=== PATIENT | female | born 1935 | race Caucasian/White ===

== ENCOUNTER 2019-06-02 11:54 | Inpatient (IN) ==
--- NOTE | 2019-06-02 12:49 | EKG Report ---
Test Performed on : 06/02/2019 12:48:06 PM Test Reason : syncope Blood Pressure : / mmHG Vent. Rate : 108 BPM Atrial Rate : 108 BPM P-R Int : 142 ms QRS Dur : 060 ms QT Int : 308 ms P-R-T Axes : 083 022 044 degrees QTc Int : 412 ms Sinus tachycardia. Possible Left atrial enlargement Low voltage QRS Borderline ECG When compared with ECG of 26-JUL-2008 10:26, QRS duration has decreased Unconfirmed Result
[2019-06-02 13:02] LABS: URINE SOURCE CLEAN CATCH
[2019-06-02 13:07] LABS: BILIRUBIN URINE NEGATIVE (NEGATIVE); BLOOD URINE MODERATE (NEGATIVE); COLOR YELLOW; GLUCOSE URINE NEGATIVE (NEGATIVE); KETONE URINE NEGATIVE (NEGATIVE); LEUKOCYTES URINE LARGE (NEGATIVE); NITRITE URINE POSITIVE (NEGATIVE); PROTEIN URINE 70 mg/dL (NEGATIVE); SP GRAVITY URINE 1.011; TURBIDITY URINE HAZY (CLEAR); UROBILINOGEN URINE NORMAL (NORMAL)
[2019-06-02 13:09] LABS: BASO# 0.03 X1000 (0.0-0.2); BASO% 0.1 % (0.0-0.8); HEMATOCRIT 35.8 % (37.0-47.0); HEMOGLOBIN 12.2 g/dL (12.0-16.0); IMM GRAN# 0.07 X1000 (0.0-0.04); IMM GRAN% 0.3 % (0.0-0.5); LYMPH# 1.28 X1000 (1.2-3.4); LYMPH% 6.2 % (20.5-51.1); MCH 28.3 PG (27-31); MCHC 34.1 g/dL (33-37); MCV 83.1 FL (81-99); MONO# 2.06 X1000 (0.11-0.59); MONO% 9.9 % (1.7-9.3); MPV 9.7 FL (7.4-10.4); NEUT# 17.36 X1000 (1.4-6.5); NEUT% 83.5 % (42.2-75.2); PLT 253 X1000 (130-400); RBC 4.31 XMIL (4.2-5.4); RDW 13.8 % (11.5-14.5)
[2019-06-02 13:12] LABS: UR EPITHELIAL CELLS <10 /HPF (<10); URINE BACTERIA 4+ /HPF; URINE RBC <10 /HPF (<10); URINE WBC TNTC /HPF (<10)
[2019-06-02 13:16] LABS: URINE YEAST NONE SEEN
[2019-06-02 13:24] LABS: ALB/GLOB RATIO 1.2; ALBUMIN 3.7 g/dL (3.5-5.0); CALCIUM 9.4 mg/dL (8.8-10.2); CREATININE 1.4 mg/dL (0.5-0.9); POTASSIUM 3.7 mmol/L (3.5-5.1); TOTAL BILIRUBIN 0.88 mg/dL (0.20-1.00); TOTAL PROTEIN 6.7 g/dL (6.3-8.3)
[2019-06-02] MEDS ORDERED: NS 1,200 ML IV ONE (13:24)
[2019-06-02 13:33] LABS: INR 1.42; PROTIME 17.6 Seconds (11.0-16.0)
[2019-06-02 13:34] LABS: PTT 40.2 Seconds (22.3-41.8)
--- NOTE | 2019-06-02 13:57 | Diag Imaging Result Doc PS360 ---
EXAM: CT HEAD W/O CONTRAST HISTORY: head injury TECHNIQUE: Images were obtained from the skull base to vertex without IV contrast as per standard protocol. This exam was performed using automated exposure control, adjustment of mA or kV according to patient size, and/or use of iterative reconstruction technique. COMPARISON: None. Extra-axial spaces: Normal. Intracranial hemorrhage: None appreciated. Ventricular system: Mildly prominent likely normal for age. Cerebral parenchyma: Mild atrophy and microvascular disease. Midline shift: None. Cerebellum: Unremarkable. Brainstem: Unremarkable. Calvarium: Normal. Paranasal sinuses and mastoid air cells: Clear. Visualized orbits: Normal. IMPRESSION: No acute intracranial abnormality is appreciated. Mild atrophy and microvascular disease. Electronically signed by Ashlee Kim 06/02/2019 1:54 PM
[2019-06-02 14:03] LABS: CK INDEX 1.9 (0.0-2.5); CK-MB 4.72 ng/mL (0.0-5.0)
--- NOTE | 2019-06-02 14:18 | Diag Imaging Result Doc PS360 ---
CHEST-1 VIEW - 06/02/2019 INDICATION: syncope COMPARISON: 07/13/2017 FINDINGS: Stable advanced bilateral pulmonary fibrosis. No new infiltrates. Heart size is normal. No pneumothorax or pleural effusion. IMPRESSION: Pulmonary fibrosis. No change from prior. Electronically signed by Roberto Riggins 06/02/2019 2:16 PM
[2019-06-02] MEDS ORDERED: ZITHROMAX 500 MG/NS 500 MG/250 ML IVPB IV ONE ×2 (14:38→19:00)
[2019-06-02] MEDS ORDERED: ROCEPHIN 2 GM in NS 50 ML IV ONE (14:38)
--- NOTE | 2019-06-02 15:28 | PROVIDER DOCUMENTATION ---
This chart was entered by Keya Jovel Scribe, acting as scribe for Cecilia Aguilera MD. HPI-Head Injury - General Chief Complaint: Syncope Stated Complaint: FALL, SYNCOPE Time Seen by Provider: 06/02/19 13:23 Source: patient Allergies/Adverse Reactions: Patient Allergies Allergy/AdvReac Type Severity Reaction Status Date / Time codeine Allergy Unknown Verified 06/02/19 14:06 Home Medications: Home Medication List Medication Instructions Recorded Confirmed Last Taken Type Digoxin 125 mcg PO DAILY 06/02/19 06/02/19 06/02/19 History Fluticasone Furoate [Arnuity 1 puff INH DAILY 06/02/19 06/02/19 06/02/19 History Ellipta] Montelukast Sodium [Singulair] 10 mg PO QHS 06/02/19 06/02/19 06/02/19 History Theophylline Anhydrous 300 mg PO DAILY 06/02/19 06/02/19 06/02/19 History [Theophylline] - History of Present Illness-Head Injury Nature of Presenting Problem: Patient is a 84 year old female who presents with a head injury. States having a syncopal episode while getting off the toilet and fell hitting head. Reports having a headache currently. Denies fever and cough. Head Injury Location: reports: other (left orbit) Other injuries associated with incident:: reports: none Quality of Pain: reports: aching Severity: reports: mild Onset/Duration: reports: just prior to arrival Timing: reports: still present Method of Injury: reports: fell, other (syncope) Any recent trauma/injury?: reports: minor, to head Injury Associated Symptoms: reports: denies symptoms Locality of Occurance: Home Similar Symptoms Previously?: No Recently seen or treated by another doctor?: No Review of Systems - Adult - REVIEW OF SYSTEMS - ADULT Constitutional: reports: no symptoms reported. denies: chills, fever, fatique Eyes: reports: no symptoms reported Ears, Nose, Mouth & Throat: reports: no symptoms reported Cardiovascular: reports: no symptoms reported Respiratory: reports: no symptoms reported Gastrointestinal: reports: no symptoms reported Genitourinary: reports: no symptoms reported Musculoskeletal: reports: no symptoms reported Integumentary: reports: no symptoms reported Neurological: reports: see HPI, headache/migraines, syncope, other (head injury) . denies: dizziness/vertigo Psychiatric: reports: no symptoms reported Endocrine: reports: no symptoms reported Hematologic/Lymphatic: reports: no symptoms reported Allergic/Immunologic: reports: no symptoms reported All Other Systems: Reviewed and Negative Past History - Adult - PAST MEDICAL HISTORY-ADULT Review of Records: reports: Old Records Reviewed, Nursing Assessment Review, Medications Reviewed, Social history reviewed & non-contributory. Major Childhood Illnesses: reports: denies history Cardiovascular: reports: denies history Respiratory: reports: COPD Gastrointestinal: reports: denies history Obstetrical/Gynecological: reports: denies history Genitourinary: reports: denies history Musculoskeletal: reports: denies history Neurological: reports: denies history Psychiatric: reports: denies history Endocrine/Immune: reports: denies history Other Conditions: reports: denies history - PRIOR SURGERIES/PROCEDURES Surgical/Procedure History: reports: reviewed, not pertinent, cholecystectomy, hysterectomy - IMMUNIZATION STATUS Childhood Immunizations: See Nurse Assessment Flu Vaccine: See Nurse Assessment - FAMILY HISTORY Family History: reviewed, not pertinent - SOCIAL HISTORY Smoking: cigarettes (former) Substance Use: denies Living Situation: family Physical Exam- Neurological - Physical Exam-Neuro Initial Vital Signs Reviewed: Yes General Appearance: alert, no apparent distress. negative: lethargic Eye Exam: left eye: other (ecchymosis to left orbit), bilateral eye: PERRL, EOMI HENMT: moist mucous membranes, other (ecchymosis to left orbit. abrasion left upper jaw). negative: angioedema Head Injury: ecchymosis (left orbit), other (abrasion left upper jaw). negative: active bleeding Neck: non-tender, full range of motion, normal inspection. negative: limited range of motion Respiratory: chest non-tender, lungs clear, normal breath sounds. negative: rhonchi, wheezing Cardiovascular: regular rate, rhythm, other (split S2). negative: tachycardia, systolic murmur Abdominal Exam: normal bowel sounds, non tender, soft. negative: guarding, rebound Extremity: tenderness (left posterior thigh). 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 negative: facial droop Integumentary: normal turgor, warm/dry, abrasion(s) (left upper jaw), ecchymosis (left orbit). negative: laceration(s) Psych/Mental Status: normal mood/affect, oriented x 3. negative: anxious Progress - PLAN OF CARE/RESULTS Progress/Plan/Lab Results: Vital Signs - 8 hr 06/02/19 12:16 06/02/19 12:31 Temperature 98.5 F 98.0 F Pulse Rate 106 H 111 H Respiratory Rate 18 20 Blood Pressure 110/60 92/51 O2 Sat by Pulse Oximetry 95 97 Laboratory Results - last 24 hr 06/02/19 06/02/19 06/02/19 12:44 12:53 12:53 WBC 20.80 H RBC 4.31 Hgb 12.2 Hct 35.8 L MCV 83.1 MCH 28.3 MCHC 34.1 RDW Std Deviation 13.8 Plt Count 253 MPV 9.7 Immature Gran % (Auto) 0.3 Neut % (Auto) 83.5 H Lymph % (Auto) 6.2 L [place] % (Auto) 9.9 H Eos % (Auto) 0.0 Baso % (Auto) 0.1 Immature Gran # (Auto) 0.07 H Neut # (Auto) 17.36 H Lymph # (Auto) 1.28 [place] # (Auto) 2.06 H Eos # (Auto) 0.00 Baso # (Auto) 0.03 PT INR PTT (Actin FS) Sodium 139 Potassium 3.7 Chloride 100 Carbon Dioxide 25 Anion Gap 14 BUN 27 H Creatinine 1.4 H Estimated GFR/1.73 m2 36 BUN/Creatinine Ratio 19 Glucose 108 H Calculated Osmolality 283 Calcium 9.4 Total Bilirubin 0.88 AST 33 H ALT 16 Alkaline Phosphatase 172 H Creatine Kinase Creatine Kinase Index CK-MB (CK-2) Troponin T Total Protein 6.7 Albumin 3.7 Globulin 3.0 Albumin/Globulin Ratio 1.2 Plasma Lactate Urine Source CLEAN CATCH Urine Color YELLOW Urine Turbidity HAZY Urine pH 7.0 Ur Specific [place] 1.011 Urine Protein 70 A Ur Glucose (Stick) NEGATIVE Ur Ketones (Stick) NEGATIVE Urine Blood MODERATE A Urine Nitrite POSITIVE A Urine Bilirubin NEGATIVE Urobilinogen Dipstick NORMAL Urine Leukocytes LARGE A Urine WBC (Auto) TNTC A Urine RBC (Auto) <10 U Epithel Cells (Auto) <10 Urine Bacteria (Auto) 4+ Urine Crystals Not Reportable Small Round Cells Not Reportable Urine Casts Not Reportable Urine Yeast-like Cells NONE SEEN 06/02/19 06/02/19 06/02/19 12:53 12:53 12:53 WBC RBC Hgb Hct MCV MCH MCHC RDW Std Deviation Plt Count MPV Immature Gran % (Auto) Neut % (Auto) Lymph % (Auto) [place] % (Auto) Eos % (Auto) Baso % (Auto) Immature Gran # (Auto) Neut # (Auto) Lymph # (Auto) [place] # (Auto) Eos # (Auto) Baso # (Auto) PT 17.6 H INR 1.42 PTT (Actin FS) 40.2 Sodium Potassium Chloride Carbon Dioxide Anion Gap BUN Creatinine Estimated GFR/1.73 m2 BUN/Creatinine Ratio Glucose Calculated Osmolality Calcium Total Bilirubin AST ALT Alkaline Phosphatase Creatine Kinase 245 H Creatine Kinase Index 1.9 CK-MB (CK-2) 4.72 Troponin T 0.037 Total Protein Albumin Globulin Albumin/Globulin Ratio Plasma Lactate Urine Source Urine Color Urine Turbidity Urine pH Ur Specific [place] Urine Protein Ur Glucose (Stick) Ur Ketones (Stick) Urine Blood Urine Nitrite Urine Bilirubin Urobilinogen Dipstick Urine Leukocytes Urine WBC (Auto) Urine RBC (Auto) U Epithel Cells (Auto) Urine Bacteria (Auto) Urine Crystals Small Round Cells Urine Casts Urine Yeast-like Cells 06/02/19 13:23 WBC RBC Hgb Hct MCV MCH MCHC RDW Std Deviation Plt Count MPV Immature Gran % (Auto) Neut % (Auto) Lymph % (Auto) [place] % (Auto) Eos % (Auto) Baso % (Auto) Immature Gran # (Auto) Neut # (Auto) Lymph # (Auto) [place] # (Auto) Eos # (Auto) Baso # (Auto) PT INR PTT (Actin FS) Sodium Potassium Chloride Carbon Dioxide Anion Gap BUN Creatinine Estimated GFR/1.73 m2 BUN/Creatinine Ratio Glucose Calculated Osmolality Calcium Total Bilirubin AST ALT Alkaline Phosphatase Creatine Kinase Creatine Kinase Index CK-MB (CK-2) Troponin T Total Protein Albumin Globulin Albumin/Globulin Ratio Plasma Lactate 1.5 Urine Source Urine Color Urine Turbidity Urine pH Ur Specific [place] Urine Protein Ur Glucose (Stick) Ur Ketones (Stick) Urine Blood Urine Nitrite Urine Bilirubin Urobilinogen Dipstick Urine Leukocytes Urine WBC (Auto) Urine RBC (Auto) U Epithel Cells (Auto) Urine Bacteria (Auto) Urine Crystals Small Round Cells Urine Casts Urine Yeast-like Cells Orders Category Date Time Status Cardiac Monitoring DIRECTED Care 06/02/19 13:12 Active IV Insertion ORDERED Care 06/02/19 13:12 Active Notify MD of + Sepsis Screen NOW Care 06/02/19 13:12 Active Notify Physician As Ordered Care 06/02/19 13:12 Active CHEST-1 VIEW [RAD] Stat Exams 06/02/19 13:[address] HEAD W/O CONTRAST [CT] Stat Exams 06/02/19 13:15 Completed BLOOD CULTURE [BLDCUL] Stat Lab 06/02/19 14:22 Received CBC WITH ELECTRONIC DIFF [HEME] Stat Lab 06/02/19 12:53 Completed CK PROFILE [SP CHEM] Stat Lab 06/02/19 12:53 Completed COMPREHENSIVE METABOLIC PANEL [CHEM] Stat Lab 06/02/19 12:53 Completed LACTATE, PLASMA [CHEM] Lab 06/02/19 13:23 Completed LACTATE, PLASMA [CHEM] Lab 06/02/19 16:15 Uncollected LACTATE, PLASMA [CHEM] Lab 06/02/19 19:15 Uncollected PROTIME WITH INR [COAG] Stat Lab 06/02/19 12:53 Completed PTT [COAG] Stat Lab 06/02/19 12:53 Completed TROPONIN T Stat Lab 06/02/19 12:53 Completed URINALYSIS [URINALYSIS] Stat Lab 06/02/19 12:44 Completed URINE MANUAL MICROSCOPIC [URINALYSIS] Stat Lab 06/02/19 12:44 Completed 0.9% Sodium Chloride Inj [Ns] 1,200 ml Med 06/02/19 13:24 Discontinued IV 999 mls/hr Azithromycin 500 mg/Ns [Zithromax 500 mg/Ns] Med 06/02/19 14:38 Active 500 mg in 250 ml IV NOW CefTRIAXONE [Rocephin] 2 gm Med 06/02/19 14:38 Discontinued 0.9% Sodium Chloride Inj [Ns] 50 ml IV NOW Generalized Adult Illness >60 Stat Oth 06/02/19 12:37 Ordered Oxygen Device Stat Oth 06/02/19 13:12 Active EKG [EKG] Stat Ther 06/02/19 12:39 Draft Result Diagrams: 06/02/19 12:53 06/02/19 12:53 - REASSESSMENT Reassessment #1 Status: unchanged (Patient with syncope and fall with head injury, positive sepsis screen with normal lactic acid, workup consistent with UTI and leukocytosis, case discussed with Hopsitalist Mitchell DELIVERY ROOM SUPERVISOR will admit UTI, Pnemonea, syncope for further managment.) - EKG 1 Time of EKG reading by physician:: 12:48 EKG Read and Signed by:: Cecilia Aguilera EKG Interpretation (*Must complete 3 of following elements*): Abnormal Rate: 108 Rhythm: sinus tachycardia [place]: normal QRS: other (low voltage) [place] Interval: normal Comments: possible left atrial enlargement - XRAY 1 XRAY Study: Chest Impression: See EMR Report (CHEST-1 VIEW - 06/02/2019 INDICATION: syncope COMPARISON: 07/13/2017 FINDINGS: Stable advanced bilateral pulmonary fibrosis. No new infiltrates. Heart size is normal. No pneumothorax or pleural effusion. IMPRESSION: Pulmonary fibrosis. No change from prior. Electronically signed by Roberto Riggins 06/02/2019 2:16 PM 06/02/19 1416 Interpreting Physician: Roberto Riggins MD Dictated Date/Time: 06/02/19 1416 cc: Hayes Rahman MD; Bhargav Murcia MD) - CT/MRI 1 CT Study: Head Impression: See EMR Report ( EXAM: CT HEAD W/O CONTRAST HISTORY: head injury TECHNIQUE: Images were obtained from the skull base to vertex without IV contrast as per standard protocol. This exam was performed using automated exposure control, adjustment of mA or kV according to patient size, and/or use of iterative reconstruction technique. COMPARISON: None. Extra-axial spaces: Normal. Intracranial hemorrhage: None appreciated. Ventricular system: Mildly prominent likely normal for age. Cerebral parenchyma: Mild atrophy and microvascular disease. Midline shift: None. Cerebellum: Unremarkable. Brainstem: Unremarkable. Calvarium: Normal. Paranasal sinuses and mastoid air cells: Clear. Visualized orbits: Normal. IMPRESSION: No acute intracranial abnormality is appreciated. Mild atrophy and microvascular disease. Electronically signed by Ashlee Kim 06/02/2019 1:54 PM 06/02/19 1354 Interpreting Physician: Ashlee Kim MD Dictated Date/Time: 06/02/19 1353 cc: Hayes Rahman MD; Bhargav Murcia MD) - CONSULTS/PCP/HOSPITALIST Notification #1 *Consult/PCP/Hospitalist*: AKBAR Moore for Hospitalist Time Discussed: 15:17 Reason/Comments: Dr. Aguilera consulted with Teresa about patient Consult Disposition: Admit Departure - Departure Date of Disposition Decision: 06/02/19 Time of Disposition Decision: 15:17 DIAGNOSIS: Pneumonia, Leukocytosis, Syncope, Head injury Disposition: ADMITTED INPATIENT 09 Certified Medical Emergency: Emergent Condition: Stable Additional Instructions: ED Follow Up Instructions: You have been treated by a care provider in the Emergency Department. These instructions are being provided to you so you can have an understanding of how to care for yourself upon discharge. Upon discharge from the Emergency Department, you are responsible for making arrangements for follow-up care by a physician of your choice. Take all prescribed medications as directed. Return to the Emergency Department immediately for any new or worsening symptoms. You may call the Physician Referral phone number at [phone] to obtain a list of Physicians who are taking new patients. Referrals and Follow-Ups: Bhargav Murcia MD [Primary Care Provider] - - Critical Care Note This patient required my direct & personal management of CC.: No Attestation - Physician/ VIDA Attestation The physician spent face to face time with patient:: Yes Advanced Practice Provider documentation review:: Supervising physician onsite and consulted in the evaluation and care of this patient. The physician did have a face to face encounter with the patient. This chart was documented by the indicated scribe, (Keya Jovel Scribe) and accurately reflects the services I performed and decisions made by me, Cecilia Aguilera MD, as attested by the provider's signature.
--- NOTE | 2019-06-02 16:58 | Diag Imaging Result Doc PS360 ---
XRAY PELVIS W/HIP 2-3VW LT - 06/02/2019 INDICATION: fall L hip pain TECHNIQUE: Three views COMPARISON: 02/21/2019 FINDINGS: Bones are intact and normally aligned. Joint spaces and soft tissues are clear. IMPRESSION: Negative exam. Electronically signed by Roberto Riggins 06/02/2019 4:56 PM
--- NOTE | 2019-06-02 20:07 | HISTORY AND PHYSICAL ---
PRIMARY CARE PROVIDER: Dr. Hdz She follows a hot die press operator in [place] and a degreaser in [place]. CHIEF COMPLAINT: Syncope. HISTORY OF PRESENT ILLNESS: Ms. Garrido is a pleasant 84-year-old female who carries a past medical history of degenerative bone disease, multiple pelvic fractures, several broken bones in both feet. She states for a long time, they thought that she had gout; however, they were fractures. That is why she follows the degreaser in [place]. She was recently on a medication for brittle bones and had to be taken off a month and a half ago due to a severely high elevated calcium that cause her to be lethargic and confused. Since she has been taken off, all those symptoms have subsided. COPD, paroxysmal atrial fibrillation for which she takes digoxin as well as chronic bronchitis that she is followed by a hot die press operator in [place]. She reports that last night and this a.m. she was having hard chills and was using her heating pad. She complained of some suprapubic pain and a foul smelling odor. She went to get up off her couch today and the last thing she remembered was waking up in her bathroom floor and it took her about 30 minutes before she could get up the strength to crawl to the front door to call her daughter. She reports the last time she had an episode like this was 2 years ago when she was diagnosed with pneumonia in [place]. Workup in the ED with a chest x-ray showed some fibrosis; however, she has been having a chronic cough, and her urinalysis does show too numerous to count WBCs, large leukocytes and positive for nitrates as well as a white count of 20 with a negative lactate. Head CT did not show any intracranial abnormalities. She does have a black eye from her fall on the left orbital area, and she is complaining of sharp left hip pain for which we will get hip and pelvis x-rays for. PAST MEDICAL HISTORY: 1. Chronic bronchitis. 2. History of degenerative bone disease. She has been dealing with multiple pelvic fractures, bilateral feet fractures. She does follow a degreaser out of [place]. 3. COPD. 4. Paroxysmal atrial fibrillation. PAST SURGICAL HISTORY: Cholecystectomy. SOCIAL HISTORY: She is , quite active. She was a smoker 30+ years ago. She had smoked for about 20 years, 1 pack per day. No alcohol or illicit drug use. She had a very supportive family at the bedside. FAMILY HISTORY: Reviewed and non-pertinent. PHYSICAL EXAMINATION: VITAL SIGNS: Temperature is 98.5 degrees, heart rate 106, respirations 18, blood pressure 110/60, O2 is 95% on room air. GENERAL: Ms. Garrido is a pleasant 84-year-old female who is sitting up in the bed in no acute distress. HEENT: She does have bruising to her left orbital area. Normocephalic. PERRL. NECK: Supple. Trachea midline. CARDIOVASCULAR: Irregularly irregular. No murmurs, gallops, rubs noted. RESPIRATORY: Lung sounds clear bilaterally. GASTROINTESTINAL: Soft, nontender, nondistended. Positive bowel sounds 4 quadrants. EXTREMITIES: Lower extremities are negative for edema. NEUROLOGIC: No focal deficits noted. LABORATORY AND DIAGNOSTICS: Per HPI. HOME MEDICATIONS: Per EMR. ASSESSMENT AND PLAN: 1. Urinary tract infection. We will continue with IV antibiotics with Rocephin, await urine culture. 2. Probable pneumonia. Patient does have a history of chronic bronchitis. Given her white count, we will treat her with Rocephin and azithromycin, supplemental O2, bronchodilators, and aggressive pulmonary toilet. Collect a sputum culture if possible. Blood cultures have been obtained. Her plasma lactate was negative. 3. Sharp left hip pain. We are currently awaiting her hip and pelvis x-ray. She does have degenerative bone disease with multiple known pelvic fractures as well as broken bones in the feet. 4. Chronic obstructive pulmonary disease history. Again, we will continue with bronchodilators. 5. Paroxysmal atrial fibrillation. We will continue with her digoxin and telemetry. 6. Further recommendations to follow physician evaluation, laboratory and diagnostic data. Dictated by AKBAR Devlin for Charles Biswas MD Addendum: Patient seen and examined by myself. Agree with AKBAR note. It reflects my assessment and plan. Patient is being admitted to hospital for UTI and possible pneumonia. Will start Ceftriaxone and Azithromycin and will start Duoneb and will monitor patient closely. cc: MD Dr. Wilder Willingham
[2019-06-02] MEDS: TYLENOL PO PRN (21:59)
[2019-06-02] MEDS: SINGULAIR PO SCH (21:59)
[2019-06-03] MEDS ORDERED: NS 500 ML IV ONE ×2 (00:42→03:31)
[2019-06-03] MEDS ORDERED: NS 1,000 ML IV SCH (00:45)
[2019-06-03 06:19] LABS: BASO# 0.03 X1000 (0.0-0.2); BASO% 0.2 % (0.0-0.8); EOS# 0.13 X1000 (0.0-0.7); EOS% 0.9 % (0.0-10.0); HEMATOCRIT 33.1 % (37.0-47.0); HEMOGLOBIN 10.9 g/dL (12.0-16.0); IMM GRAN# 0.04 X1000 (0.0-0.04); IMM GRAN% 0.3 % (0.0-0.5); LYMPH# 1.51 X1000 (1.2-3.4); LYMPH% 10.3 % (20.5-51.1); MCH 28.2 PG (27-31); MCHC 32.9 g/dL (33-37); MCV 85.5 FL (81-99); MONO# 1.43 X1000 (0.11-0.59); MONO% 9.7 % (1.7-9.3); NEUT# 11.59 X1000 (1.4-6.5); NEUT% 78.6 % (42.2-75.2); PLT 174 X1000 (130-400); RBC 3.87 XMIL (4.2-5.4); RDW 14.1 % (11.5-14.5); WBC 14.73 X1000 (4.8-10.8)
[2019-06-03] MEDS ORDERED: NS 250 ML IV ONE (07:47)
[2019-06-03] MEDS ORDERED: MYCAMINE 100 MG in NS 100 ML IV SCH (08:00)
[2019-06-03 08:11] LABS: ALB/GLOB RATIO 0.9; ALBUMIN 2.6 g/dL (3.5-5.0); CALCIUM 8.7 mg/dL (8.8-10.2); CREATININE 1.2 mg/dL (0.5-0.9); POTASSIUM 4.2 mmol/L (3.5-5.1); TOTAL BILIRUBIN 0.67 mg/dL (0.20-1.00); TOTAL PROTEIN 5.5 g/dL (6.3-8.3)
--- NOTE | 2019-06-03 08:37 | Diag Imaging Result Doc PS360 ---
CHEST-PORTABLE - 06/03/2019 INDICATION: Pneumonia COMPARISON: 06/02/2019 FINDINGS: There has been slight worsening in the ill-defined interstitial infiltrates diffusely and bilaterally. Heart size remains enlarged. No pneumothorax or pleural effusion. IMPRESSION: Slight pulmonary edema or atypical infiltrates superimposed on the pre-existing pulmonary fibrosis. Electronically signed by Roberto Riggins 06/03/2019 8:35 AM
[2019-06-03] MEDS: MAXIPIME 2 GM in NS 100 ML IV SCH (08:38)
[2019-06-03] MEDS: TYLENOL PO PRN ×2 (09:04→18:19)
[2019-06-03] MEDS: LANOXIN PO SCH (09:05)
--- NOTE | 2019-06-03 12:14 | PROGRESS NOTE ---
DATE: 06/03/2019 SUBJECTIVE: Ms. Garrido was admitted yesterday. Apparently she was going to the bathroom to have a bowel movement. She did complain of some nausea, and she passed out and I think hit her left side of her face and eye. She has a history of degenerative bone disease, multiple pelvic fractures, severe broken bones in both feet. For a long time, she thought she had gout. However, they were fractures. She sees a marketing operations manager in [place]. Recently on medication for brittle bones and taken off a month and a half ago due to severely high elevated calcium that caused her to be lethargic and confused, than she has been taken off. These symptoms have subsided. She has underlying COPD, paroxysmal atrial fib, takes digoxin, has chronic bronchodilators, followed by Pulmonology in [place]. She was having some hard chills and was using her heating pad. Complained of some suprapubic pain, some foul-smelling urine. Went to get off the couch; the last thing she remembers is she was walking to the bathroom and she passed out. Had to crawl to the front door, could not get up. I think she called her daughter. In the emergency room, chest x- ray appeared to have some pulmonary fibrosis. Head CT did not show any intracranial bleed. PAST MEDICAL HISTORY: 1. Chronic bronchitis. 2. History of degenerative bone disease. 3. COPD. 4. Paroxysmal atrial fibrillation. PAST SURGICAL HISTORY: Cholecystectomy. LABORATORY DATA: White count yesterday was 20,000, is down to 14,730. Hematocrit is 35, down to 33. Platelet count 253,000, down to 174,000 today. Sodium 140, potassium 4.2, chloride 110. BUN 23, creatinine 1.2. Lactate level was 2.6. IMAGING STUDIES: 1. Chest x-ray: Showed slight pulmonary edema, atypical infiltrate superimposed on pre-existing pulmonary fibrosis. 2. Hip and pelvic x-ray: Negative exam. Bones intact and normally aligned. Joint spaces and soft tissues are clear. 3. CT of the head: No acute intracranial abnormality, mild atrophy and microvascular disease. ASSESSMENT AND PLAN: 1. Urinary tract infection. Continue intravenous Rocephin. Await urine culture. 2. Probable pneumonia. Continue to treat for chronic bronchitis, underlying appears to have some fibrosis. On Rocephin and azithromycin. 3. Sharp left hip pain. The x-rays do not show any fracture. 4. Chronic obstructive pulmonary disease. 5. Paroxysmal atrial fibrillation on digoxin. 6. Apparently she is eating a little better. She states she was not eating very well on the day of arrival. MEDICATIONS: She is on cefepime 2 g IV q. 24 hours, Micafungin 100 mg IV q. 24 hours and azithromycin 500 mg daily. Continue her fluids. I am going to stop the Micafungin and continue cefepime. cc: Tres Minor MD
[2019-06-03] MEDS: DIFLUCAN PO SCH (12:23)
[2019-06-03] MEDS: PATIENT'S OWN MED INH SCH (12:25)
[2019-06-03] MEDS ORDERED: ROCEPHIN 1 GM in NS 50 ML IV SCH (18:30)
[2019-06-03] MEDS ORDERED: ZITHROMAX 500 MG/NS 500 MG/250 ML IVPB IV SCH (20:00)
[2019-06-03] MEDS: SINGULAIR PO SCH (22:14)
[2019-06-04] MEDS: TYLENOL PO PRN ×2 (04:07→16:26)
[2019-06-04] MEDS: PATIENT'S OWN MED INH SCH (08:00)
[2019-06-04] MEDS: DIFLUCAN PO SCH (08:37)
[2019-06-04] MEDS: LANOXIN PO SCH (08:38)
[2019-06-04] MEDS: MAXIPIME 2 GM in NS 100 ML IV SCH (08:39)
--- NOTE | 2019-06-04 08:44 | PROGRESS NOTE ---
DATE: 06/04/2019 SUBJECTIVE: Ms. Garrido feels a lot better, had a good night's sleep last night. Has not had any swimmy headed feeling or presyncope. Her urine did grow out Escherichia coli, and 1 of 2 blood cultures was gram-negative alfonzo, so we wait on ID on that. OBJECTIVE: Vital Signs: Remains afebrile. I think she had a temperature of 100.2 degrees, and then yesterday it went up to 102. Pulse 70, respirations 14, blood pressure 112/45. HEENT: Pupils are equal and round. Lungs: Clear in all lung bonner. Cardiovascular: Regular rhythm and rate without murmur or S3. ASSESSMENT AND PLAN: 1. Urinary tract infection suspected. She has gram-negative alfonzo that grew in the blood, so I think we will treat this like bacteremia from a urinary tract infection. 2. Probable pneumonia, so also could have had bacteremia from pneumonia. 3. Sharp left hip pain. Did not show any fracture. She is much better. That has resolved. 4. Chronic obstructive pulmonary disease. 5. Paroxysmal atrial fibrillation. 6. She is eating well. REVIEW OF ORDERS: She is on cefepime 2 grams IV every 24 hours. Her blood pressures look good. cc: Tres Minor MD
[2019-06-04] MEDS: SINGULAIR PO SCH (21:24)
[2019-06-05] MEDS: TYLENOL PO PRN ×2 (08:36→18:31)
[2019-06-05] MEDS: LANOXIN PO SCH (08:38)
[2019-06-05] MEDS: DIFLUCAN PO SCH (08:41)
[2019-06-05] MEDS: PATIENT'S OWN MED INH SCH (08:42)
[2019-06-05] MEDS: MAXIPIME 2 GM in NS 100 ML IV SCH (08:42)
--- NOTE | 2019-06-05 14:05 | PROGRESS NOTE ---
DATE: 06/05/2019 SUBJECTIVE: Ms. Garrido is feeling better. She is thinking about going home. She is still a little weak. She is eating; eats about like she does at home. says she never eats much. OBJECTIVE: Vital Signs: On exam today, temperature 97.7 degrees, pulse 70, respirations 20, blood pressure 124/46. Neck: No distended neck veins. Lungs: Clear in all lung bonner. Cardiovascular exam: Regular rhythm and rate without murmur or S3. Abdomen: Soft. Skin: Warm and dry. : Urine output 2700 mL. Extremities: No pedal edema. Her blood pressures have been 130/56, 120/36, 121/51 and 124/46. ASSESSMENT AND PLAN: 1. Urinary tract infection. Suspected gram-negative alfonzo grew in her bloodstream. Likely she had some bacteremia; this should be well treated at this point. 2. Probable pneumonia. We treated her for pneumonia. Clinically, that is better. 3. Sharp left hip pain. X-rays did not reveal any fractures. This is better. 4. Chronic obstructive pulmonary disease. 5. Paroxysmal atrial fibrillation. 6. Presyncope and syncopal type episode with hypotension. I think she will be ready to go home. Encouraged her to get home health. We will aim for tomorrow. She is on cefepime 2 grams intravenous every 24 hours, digoxin 125 mcg oral daily, Diflucan 100 mg daily, Singulair 10 mg at bedtime. Her cultures: Urine showed Escherichia coli and 1/2 blood cultures was Escherichia coli. I think I will repeat another chest x-ray in the morning. Lab from the all looked unremarkable. cc: Tres Minor MD
--- NOTE | 2019-06-05 14:12 | Diag Imaging Result Doc PS360 ---
EXAM: CHEST-2 VIEWS 06/05/2019 HISTORY: pneumonia TECHNIQUE: PA and lateral chest COMMENT: There are patchy ill-defined opacities bilaterally. This is worse in the left base than on 06/03/2019. IMPRESSION: Bronchopneumonia, slightly worse in the left lower lobe. Electronically signed by Jose Joseph 06/05/2019 2:09 PM
[2019-06-05] MEDS: SINGULAIR PO SCH (21:00)
[2019-06-06] MEDS: PATIENT'S OWN MED INH SCH (08:11)
[2019-06-06 08:27] VITALS: BP 131/42
[2019-06-06] MEDS: MAXIPIME 2 GM in NS 100 ML IV SCH (09:00)
[2019-06-06] MEDS: LANOXIN PO SCH (09:15)
[2019-06-06] MEDS: DIFLUCAN PO SCH (09:15)
--- NOTE | 2019-06-06 12:45 | DISCHARGE SUMMARY ---
ADMISSION DATE: 06/02/2019 DISCHARGE DATE: 06/06/2019 HISTORY OF PRESENT ILLNESS: She is a patient of Dr. Dyer. She follows with a signal technician in [place], a chemistry laboratory technician in [place]. This is an 84-year-old, female who carries a past history of degenerative bone disease, multiple pelvic fractures, several broken bones in both feet. She states that for a long time, she thought she had gout. However, they were fractures. That is why she is followed by a chemistry laboratory technician in [place]. Recently on a medication for brittle bones, had to be taken off a month and half ago for severely high elevated calcium that caused her to be lethargic, confused. Since she has been taken off of this, her symptoms have subsided. She has a history of COPD, paroxysmal atrial fibrillation for which she takes digoxin, as well as chronic bronchitis, followed by signal technician in [place]. She reports that the night before admission, she was having hard chills and using her heating pad. She complained of some suprapubic pain, some foul-smelling odor. Went to get off the couch on the day of admission. Last thing she remembers, waking up on the bathroom floor. It took her about 30 minutes before she could get enough strength to crawl to the front door and call her daughter. Reports the last time she had an episode like this was 2 years ago. She was diagnosed with pneumonia in [place]. Workup in the emergency room, chest x-ray showed fibrosis. However, she has had chronic coughing. Urinalysis did show numerous white blood cell count, large amount of leukocytosis and nitrites. White count was 20. Head CT did not show any new intracranial abnormalities. She had a black eye from her fall and the left periorbital ecchymosis. PAST MEDICAL HISTORY: 1. Chronic bronchitis. 2. History of degenerative bone disease, dealing with multiple fractures of bilateral feet and pelvic fractures. Sees a chemistry laboratory technician in [place]. 3. COPD. 4. Paroxysmal atrial fibrillation. PAST SURGICAL HISTORY: Cholecystectomy. HOSPITAL COURSE: Admission diagnosis of urinary tract infection. She had bacteremia as well from this and suspected possible pneumonia, chronic bronchitis, so we treated her for pneumonia and a urinary tract infection. She did show steady improvement. Chest x-ray on 06/02/2019, pulmonary fibrosis, no change. No definite infiltrate. CT of the head on 06/02/2019, no acute abnormality. Chest x-ray repeated on 06/03/2019, slight pulmonary edema, atypical infiltrate, superimposed pulmonary fibrosis. Then followup chest x-ray again on 06/05/2019, left lower lobe with some atelectasis. Clinically, she was better. Still felt pretty weak. I recommended that she get a walker. They wanted to go home. Blood pressures, the last three were 164/66, 140/71, 131/42. DISCHARGE MEDICATIONS: She will be on Singulair 10 mg at bedtime, digoxin 125 mcg p.o. daily. Her micro showed E. coli in 2 of the blood cultures and in the urine. The E. coli was sensitive to everything. It did not have extended-spectrum beta lactamase producing organism. I am going to put her on Levaquin 500 mg a day and I am going to give her really a 2 week prescription. Encourage her to get a walker. Continue to work on her strength and exercise. I will have her stop her theophylline. cc: Tres Minor MD
[2019-06-07] MEDS ORDERED: NON-FORMULARY BULK MED INH SCH (07:30)
== END 2019-06-06 14:10 | disposition home health service (06) | DRG 194 ==
LOC: SUPCPDRO → ED 11:54 → SUATTDRO 17:58 → EDIPHOLD 17:58 → 1N 19:54
PROVIDERS: ATTEND Emergency Medicine